=== PATIENT | female | born 2000 | race Asian ===

== ENCOUNTER 2019-03-01 11:47 | Emergency (ER) | payer OTHER ==
--- NOTE | 2019-03-01 12:30 | ED ---
Lower Extremity - HPI Summary HPI Summary: This patient is a 18 year old F presenting to [facility] accompanied by roommate with a chief complaint of swollen R ankle since night of 02/27/19. Pt report on the morning of 02/27/19 she was in a PE class doing jumping richi when she landed on her R ankle wrong. The instructor of the course recommended that she ice her ankle. On 02/27/19 she was able to walk on ankle; however that evening it became swollen. Per triage, the patient rates the pain 5/10 in severity. Symptoms alleviated by Turkish ointment, and she stayed off her foot on 02/28/19. - History of Current Complaint Chief Complaint: EDExtremityLower Stated Complaint: RT ANKLE INJ PER PT Time Seen by Provider: 03/01/19 12:13 Hx Obtained From: Patient Mechanism Of Injury: Twisted Onset of Pain: Post Accident Onset/Duration: Days Severity Initially: Mild Severity Currently: Moderate Pain Intensity: 5 Pain Scale Used: 0-10 Numeric Timing: Constant Location: Is Discrete @ - R ankle Associated Signs And Symptoms: Positive: Swelling Aggravating Factor(s): Ambulation Alleviating Factor(s): Nothing Able to Bear Weight: Yes - Allergies/Home Medications Home Medications: Home Medications [place] Medicated [place] 1 applic TOPICAL SEE INSTRUCTIONS 03/01/19 [History Confirmed 03/01/19] PMH/Surg Hx/FS Hx/Imm Hx Sensory History: Denies: Hx Legally Blind, Hx Deafness Opthamlomology History: Denies: Hx Legally Blind EENT History: Denies: Hx Deafness Infectious Disease History: No Infectious Disease History: Denies: Traveled Outside the [place] in Last 30 Days - Family History Known Family History: Negative: Hypertension, Diabetes - Social History Occupation: Student Lives: Dormitory/Roommates Alcohol Use: None Substance Use Type: Reports: None Hx Tobacco Use: No Smoking Status (MU): Never Smoked Tobacco Review of Systems Negative: Fever Positive: Other - R ankle All Other Systems Reviewed And Are Negative: Yes Physical Exam - Summary Physical Exam Summary: Appearance: The patient is well-nourished in no acute distress and in no acute pain. Skin: The skin is warm and dry, and skin color reflects adequate perfusion. HEENT: The head is normocephalic and atraumatic. The pupils are equal and reactive. The conjunctivae are clear and without drainage. Nares are patent and without drainage. Mouth reveals moist mucous membranes, and the throat is without erythema and exudate. The external ears are intact. The ear canals are patent and without drainage. The tympanic membranes are intact. Neck: The neck is supple with full range of motion and non-tender. There are no carotid bruits. There is no neck vein distension. Respiratory: Chest is non-tender. Lungs are clear to auscultation and breath sounds are symmetrical and equal. Cardiovascular: Heart is regular rate and rhythm. There is no murmur or rub auscultated. Pulses are symmetrical and equal. Abdomen: The abdomen is soft and non-tender. There are normal bowel sounds heard in all four quadrants and there is no organomegaly palpated. Musculoskeletal: There is no back tenderness noted.There is good capillary refill. Swelling and mild tenderness of R lateral malleolus. Neurological: Patient is alert and oriented to person, place and time. The patient has symmetrical motor strength in all four extremities. Cranial nerves are grossly intact. Deep tendon reflexes are symmetrical and equal in all four extremities. Psychiatric: The patient has an appropriate affect and does not exhibit any anxiety or depression. Triage Information Reviewed: Yes Vital Signs On Initial Exam: Initial Vitals Temp Pulse Resp BP Pulse Ox 99.1 F 69 14 113/76 98 03/01/19 11:55 03/01/19 11:55 03/01/19 11:55 03/01/19 11:55 03/01/19 11:55 Vital Signs Reviewed: Yes Diagnostics - Vital Signs Vital Signs Temp Pulse Resp BP Pulse Ox 03/01/19 11:55 99.1 F 69 14 113/76 98 - Laboratory Lab Statement: Any lab studies that have been ordered have been reviewed, and results considered in the medical decision making process. - Radiology Ankle X-Ray Radiology Interpretation Completed By: Radiologist Summary of Radiographic Findings: Ankle X-Ray reveals, per radiologist, REPORT AND IMPRESSION: #. Soft tissue swelling most prominent over the lateral malleolus. #. Negative for fracture, osteochondral lesion, or articular malalignment. ED physician has reviewed this radiology report. Re-Evaluation - Re-Evaluation First Eval Re-Evaluation Time: 12:47 Comment: Placed gel ankle splint. Discussed plan for discharge. Lower Extremity Course/Dx - Course Course Of Treatment: Ms. Mac inverted her right foot yesterday. She iced it, used a camphor ointment and tried to stay off it as much as possible. In spite of that it swelled up especially laterally. She had swelling over lateral malleolus, was not particularly tender over the malleolus and there was no ligamentous laxity. X-ray was negative except for swelling. We placed her in the gel cast and crutches and recommended follow-up with [facility] or orthopedics. The patient fairly adamantly wanted an MRI scan I explained to her that we could not obtain an emergent MRI and that after orthopedic evaluation it's possible they may order an MRI scan but I thought it unlikely. I encouraged her to elevate her ankle and ice it and that it would heal up as long she took care of it. - Diagnoses Provider Diagnoses: Ankle sprain Discharge ED - Sign-Out/Discharge Documenting (check all that apply): Patient Departure Patient Received Moderate/Deep Sedation with Procedure: No - Discharge Plan Condition: Stable Disposition: HOME Patient Education Materials: Ankle Sprain (ED) Referrals: Farooq Nunez MD [Medical Doctor] - 3 Days Additional Instructions: Follow up with orthopedics in 2-3 days. Recommends taking ibuprofen for pain. RETURN TO THE ED FOR ANY NEW OR WORSENING SYMPTOMS. - Billing Disposition and Condition Condition: STABLE Disposition: Home - Attestation Statements Document Initiated by Jade: Yes Documenting Scribe: Lou Kimbrough Provider For Whom Jade is Documenting (Include Credential): Chao Black MD Scribe Attestation: Lou Interiano, scribed for Chao Black MD on 03/01/19 at 1329. Scribe Documentation Reviewed: Yes Provider Attestation: The documentation as recorded by the Lou nathan accurately reflects the service I personally performed and the decisions made by me, Chao Black MD Status of Scribe Document: Viewed
[2019-03-01 13:23] VITALS: BP 104/67
== END 2019-03-01 13:21 | disposition home or self-care (01) ==
LOC: ED 11:47
DX: S93.401A Sprain of unspecified ligament of right ankle, initial encounter (principal); X50.0XXA Overexertion from strenuous movement or load, initial encounter; Y92.219 Unspecified school as the place of occurrence of the external cause; Y99.8 Other external cause status
CPT/HCPCS: 99282